=== PATIENT | female | born 1970 | race Two or more races ===

== ENCOUNTER 2023-03-22 22:52 | Emergency (ER) | payer BC ==
[~2023-03-22] VITALS: Ht 154.9 cm; Wt 46.3 kg
== END 2023-03-23 01:08 | disposition home or self-care (01) ==
LOC: ER 22:52
DX: S92.912A Unspecified fracture of left toe(s), initial encounter for closed fracture (principal); W22.03XA Walked into furniture, initial encounter; Y93.9 Activity, unspecified; Y92.013 Bedroom of single-family (private) house as the place of occurrence of the external cause; Y99.9 Unspecified external cause status